=== PATIENT | male | born 1965 | race Caucasian/White ===

== ENCOUNTER 2021-02-26 21:33 | Emergency (ER) | payer MEDICARE, OTHER ==
[~2021-02-26] VITALS: Ht 172.7 cm; Wt 90.7 kg
[2021-02-26 22:30] VITALS: BP 139/100
[2021-02-27] MEDS ORDERED: NAPR-1164 PO (00:17)
== END 2021-02-27 00:31 | disposition home or self-care (01) ==
LOC: ER 21:36
DX: S93.491A Sprain of other ligament of right ankle, initial encounter (principal); W11.XXXA Fall on and from ladder, initial encounter; Y93.89 Activity, other specified; Y92.89 Other specified places as the place of occurrence of the external cause; Y99.8 Other external cause status
CPT/HCPCS: 73610; 73630; 99284; J7030

== ENCOUNTER 2024-07-31 18:55 | Emergency (ER) | payer MEDICARE, OTHER ==
[~2024-07-31] VITALS: Ht 172.7 cm; Wt 95.3 kg
[~2024-07-31 18:55] MED LIST: NAPR-1164 PO
[2024-07-31 19:28] LABS: BASOPHILS # (AUTO) 0.1 K/uL (0.0-0.2); EOSINOPHILS # (AUTO) 0.4 K/uL (0.0-0.7); EOSINOPHILS % (AUTO) 4.1 % (0.0-6.0); HEMATOCRIT 44 % (39-51); LYMPHOCYTES % (AUTO) 30.9 % (20.0-44.0); MEAN CORPUSCULAR HEMOGLOBIN 31 PG (26.0-33.0); MEAN CORPUSCULAR HGB CONC 34 g/dl (31.0-36.0); MEAN CORPUSCULAR VOLUME 91 fL (80-96); MONOCYTES # (AUTO) 0.9 K/uL (0.1-1.30); MONOCYTES % (AUTO) 8.9 % (2.0-12.0); NEUTROPHILS # (AUTO) 5.3 K/uL (1.8-8.9); NEUTROPHILS % (AUTO) 55.1 % (43.0-81.0); PLATELET COUNT (AUTO) 301 K/uL (150-450); RED CELL DISTRIBUTION WIDTH 13.3 % (11.5-15.0); WHITE BLOOD COUNT (AUTO) 9.7 K/uL (4.3-11.0)
[2024-07-31 19:37] LABS: CALCIUM, SERUM 8.5 mg/dL (8.5-10.1); CARBON DIOXIDE 29 mmol/L (21-32); CHLORIDE 107 mmol/L (98-107); CREATININE 0.8 mg/dL (0.6-1.3); GLUCOSE 105 mg/dL (74-106); SODIUM SERUM 142 mmol/L (136-145); UREA NITROGEN, BLOOD 13 mg/dL (7-18)
[2024-07-31] MEDS ORDERED: ASPIRIN 81 MG TAB.CHEW ONE (19:42)
[2024-07-31] MEDS ORDERED: FAMOTIDINE/PF INJ 20 MG/2 ML VIAL IV ONE (19:42)
[2024-07-31] MEDS ORDERED: MAG HYDROX/AL HYDROX/SIMETH 30 ML UDC ONE (19:42)
[2024-07-31 19:50] LABS: ALANINE AMINOTRANSFERASE 22 U/L (12-78); ALBUMIN 3.5 g/dL (3.4-5.0); ALKALINE PHOSPHATASE 46 U/L (46-116); ASPARTATE AMINOTRANSFERASE 13 U/L (15-37); BILIRUBIN,DIRECT 0.1 mg/dL (0.0-0.2); BILIRUBIN,TOTAL 0.3 mg/dL (0.2-1.0); NT-PRO BNP 20 pg/mL (0-125); TOTAL PROTEIN, SERUM 6.9 g/dL (6.4-8.2)
[2024-07-31] MEDS: MAG HYDROX/AL HYDROX/SIMETH 30 ML UDC PO ONE (19:58)
[2024-07-31] MEDS: FAMOTIDINE/PF INJ 20 MG/2 ML VIAL IV ONE (19:58)
[2024-07-31] MEDS: ASPIRIN 81 MG TAB.CHEW PO ONE (19:58)
[2024-07-31] MEDS ORDERED: ONDANSETRON HCL/PF 4 MG/2 ML VIAL ONE (22:17)
[2024-07-31] MEDS ORDERED: MORPHINE SULFATE INJ 4 MG/ML DISP.SYRIN ONE (22:17)
[2024-07-31] MEDS: MORPHINE SULFATE INJ 2 MG/ML DISP.SYRIN IV ONE (22:22)
[2024-07-31] MEDS: ONDANSETRON HCL/PF 4 MG/2 ML VIAL IV ONE (22:22)
[2024-07-31 22:54] VITALS: BP 159/99; TEMP 98; O2SAT 97
== END 2024-07-31 22:54 | disposition home or self-care (01) ==
LOC: ER 18:57
DX: R07.2 Precordial pain (principal); R11.0 Nausea; F17.200 Nicotine dependence, unspecified, uncomplicated; L30.9 Dermatitis, unspecified
CPT/HCPCS: 99285; 96374; 76700; 96375; 71045; 93005; 85025; 80048; 83690; 80076; 36415; 84484 ×2; 83880; J2270; J3490; J2405